=== PATIENT | female | born 1980 | race African-American/Black ===

== ENCOUNTER 2016-08-16 13:32 | Emergency (ER) | payer OTHER ==
--- NOTE | ~2016-08-16 | EKG ---
PATIENT: DANIEL BRIONES UNIT #: [id number] Ventricular Rate: 58 BPM Atrial Rate: 58 BPM P-R Interval: 134 ms QRS Duration: 80 ms Q-T Interval: 402 ms QTC Calculation(Bezet): 394 ms P [place]: 4 degrees Calculated R [place]: -18 degrees Calculated T [place]: 2 degrees Diagnosis Line: Sinus bradycardia Diagnosis Line: Minimal voltage criteria for LVH, may be normal Diagnosis Line: variant Diagnosis Line: Poor R wave progression questionable lead position Diagnosis Line: or body habitus Otherwise normal ECG Diagnosis Line: When compared with ECG of 16-AUG-2016 15:02, Diagnosis Line: (unconfirmed) Diagnosis Line: No significant change was found Diagnosis Line: Confirmed by JOHAN CANTU MD ([id number]) on 08/17/2016 Diagnosis Line: 10:06:24 AM INTERPRETING MD: PEPE COTTER
--- NOTE | ~2016-08-16 | MR122 ---
[facility] A Service of [facility] RADIOLOGY TEXT RESULTS PATIENT: DANIEL BRIONES LOCATION: [facility] : [birth year] UNIT #: [id number] AGE: [address]: Feliberto Hahn MD SEX: F ORDER DR: [id number] [facility] [address] [place], [place] [address] [id number] E MR#: [id number] Acc #: [id number] NAME: DANIEL BRIONES : 1980 SEX: F STUDY DATE/TIME: 08/16/2016 18:21 UNIT: [facility] ROOM: STUDY DESCRIPTION: MR MRA Head Wo Contrast Attending Physician: Shayne Hahn M.D. Ordering Physician: Moreno Kelly D.O. Primary Care Physician: [facility], [facility]. MRI CENTER REPORT This report is preliminary unless electronic signature is present. EXAM MR angiogram brain without contrast HISTORY Blurred vision today. Right jaw pain. TECHNIQUE MR angiogram of the brain was performed without contrast from the skull base through the [place]. FINDINGS The intracranial vertebral arteries and basilar artery are widely patent. The intracranial internal carotid arteries are widely patent bilaterally. The anterior cerebral, middle cerebral and posterior cerebral arteries are also widely patent. No major vessel occlusion. No aneurysm or vascular malformation. IMPRESSION Normal MR angiogram of the brain. Dictated by... Howard Meeks M.D. THIS IS AN ELECTRONICALLY VERIFIED REPORT Howard Meeks M.D. at 08/18/2016 5:14 PM DFL/pcl TD: 08/16/2016 22:28 JOB #: [id number] [facility] A Service [facility] RADIOLOGY TEXT RESULTS PATIENT: DANIEL BRIONES LOCATION: [facility] : [birth year] UNIT #: [id number] AGE: [address]: Feliberto Hahn MD SEX: F ORDER DR: MRI CENTER REPORT Page 1 of 1 COPY
--- NOTE | ~2016-08-16 | CR63 ---
[facility] A Service of [facility] RADIOLOGY TEXT RESULTS PATIENT: DANILE BRIONES LOCATION: [facility] : 80 UNIT #: [id number] AGE: [address]: Feliberto Hahn MD SEX: F ORDER DR: [id number] [facility] [address] [place], [place] [address] [id number] E MR#: [id number] Acc #: [id number] NAME: DANIEL BRIONES : 1980 SEX: F STUDY DATE/TIME: 08/16/2016 20:43 UNIT: [facility] ROOM: STUDY DESCRIPTION: CR Chest 2 View Attending Physician: Shayne Hahn M.D. Ordering Physician: Moreno Kelly D.O. Primary Care Physician: [facility] RE[facility] This report is preliminary unless electronic signature is present EXAM PA and lateral chest HISTORY Chest pain. Shortness of air today. FINDINGS The cardiac size is at the upper limits of normal, likely accentuated by low lung volumes. Pulmonary vascularity is normal. No infiltrates or effusions. IMPRESSION No acute findings Dictated by... Howard Meeks M.D. THIS IS AN ELECTRONICALLY VERIFIED REPORT Howard Meeks M.D. at 08/16/2016 11:18 PM YADIRA/edil TD: 08/16/2016 22:49 JOB #: [id number] MEDICAL IMAGING REPORT Page 1 of 1 COPY
--- NOTE | ~2016-08-16 | EKG ---
PATIENT: DANIEL BRIONES UNIT #: [id number] Ventricular Rate: 60 BPM Atrial Rate: 60 BPM P-R Interval: 126 ms QRS Duration: 82 ms Q-T Interval: 392 ms QTC Calculation(Bezet): 392 ms P [place]: 26 degrees Calculated R [place]: -17 degrees Calculated T [place]: -4 degrees Diagnosis Line: Normal sinus rhythm Diagnosis Line: Minimal voltage criteria for LVH, may be normal Diagnosis Line: variant Diagnosis Line: Otherwise normal ECG Diagnosis Line: When compared with ECG of 06-MAR-2011 23:59, Diagnosis Line: Vent. rate has decreased BY 65 BPM Diagnosis Line: Confirmed by JOHAN CANTU MD ([id number]) on 08/17/2016 Diagnosis Line: 10:04:51 AM INTERPRETING MD: PEPE COTTER
--- NOTE | ~2016-08-16 | MR134 ---
[facility] A Service of [facility] RADIOLOGY TEXT RESULTS PATIENT: DANIEL BRIONES LOCATION: [facility] : 80 UNIT #: [id number] AGE: [address]: Feliberto Hahn MD SEX: F ORDER DR: [id number] [facility] [address] [place] [address] [place], [place] [address] [id number] E MR#: [id number] Acc #: [id number] NAME: DANIEL BRIONES : 1980 SEX: F STUDY DATE/TIME: 08/16/2016 19:12 UNIT: [place] ROOM: STUDY DESCRIPTION: MR MRA Neck Wo Contrast Attending Physician: Shayne Hahn M.D. Ordering Physician: Moreno Kelly D.O. Primary Care Physician: [facility]. MRI CENTER REPORT This report is preliminary unless electronic signature is present. EXAM MR angiogram neck without contrast HISTORY Blurred vision today. Right jaw pain. FINDINGS MR angiogram of the neck was performed without contrast. The origins of the common carotid arteries and vertebral arteries are not well seen due to motion. The remainder of the common carotid arteries in the carotid bulbs and the cervical internal carotid arteries are widely patent with 0% stenosis by NASCET criteria. The remainder of the vertebral arteries are also widely patent bilaterally. IMPRESSION No evidence of cervical carotid artery stenosis by NASCET criteria. The visualized carotid arteries are widely patent bilaterally. The origins of the common carotid arteries and vertebral arteries are not well seen due to motion. Dictated by... Howard Meeks M.D. THIS IS AN ELECTRONICALLY VERIFIED REPORT Howard Meeks M.D. at 08/18/2016 5:14 PM DFBrayan/dharmesh TD: 08/16/2016 22:31 JOB #: [id number] MRI CENTER REPORT [facility] A Service [facility] RADIOLOGY TEXT RESULTS PATIENT: DANIEL BRIONES [facility] [id number] : [birth year] UNIT #: [id number] AGE: [address]: Feliberto Hahn MD SEX: F ORDER DR: Page 1 of 1 COPY
--- NOTE | ~2016-08-16 | MR18 ---
[facility] Service of [facility] RADIOLOGY TEXT RESULTS PATIENT: DANIEL BRIONES LOCATION: [facility] : 80 UNIT #: [id number] AGE: [address]: Feliberto Hahn MD SEX: F ORDER DR: [id number] [facility] [address] [place], [place] [address] [id number] E MR#: [id number] Acc #: [id number] NAME: DANIEL BRIONES : 1980 SEX: F STUDY DATE/TIME: 08/16/2016 18:29 UNIT: [facility] ROOM: STUDY DESCRIPTION: MR Brain Wo Contrast Attending Physician: Shayne Hahn M.D. Ordering Physician: Moreno Kelly D.O. Primary Care Physician: [facility], [facility]. MRI CENTER REPORT This report is preliminary unless electronic signature is present. EXAM MRI brain without contrast HISTORY Blurred vision today. Right jaw pain. FINDINGS MRI brain without contrast demonstrates no recent ischemia or infarct. No intracranial mass or edema. No midline shift, ventricular dilatation, focal atrophy, or extraaxial fluid collection. IMPRESSION Normal MRI brain. Dictated by... Howard Meeks M.D. THIS IS AN ELECTRONICALLY VERIFIED REPORT Howard Meeks M.D. at 08/18/2016 5:13 PM DFL/jared TD: 08/16/2016 22:27 JOB #: [id number] MRI CENTER REPORT Page 1 of 1 COPY
[~2016-08-16 13:32] MED LIST: AMOXIL500 M1 PO; BACTRIM DS TABL1 TA1 PO; LORTAB 5/500 TA1 TA1 PO; LORTAB 7.5-5001 TAB PO; ORUDIS75 M1 PO; PHENERGAN25 MG PO; UNKNOWN BP MED
[2016-08-16 15:24] LABS: BASOPHIL# 0.1 X10e3 (0-0.3); BASOPHIL% 0.8 % (0-2.5); EOSINOPHIL# 0.1 X10e3 (0-0.7); EOSINOPHIL% 1.2 % (0.0-7.0); HEMATOCRIT 35.8 % (35.0-45.0); HEMOGLOBIN 11.4 gm/dL (12.0-16.0); LYMPHOCYTE# 1.9 X10e3 (1.0-3.5); LYMPHOCYTE% 29.1 % (17.0-45.0); MEAN CELL VOLUME 76.9 FL (83-96); MEAN CORPUSCULAR HEMOGLOBIN 24.4 PG (28-34); MEAN CORPUSCULAR HGB CONC 31.8 g/dL (30-36); MEAN PLATELET VOLUME 7.7 FL (6.5-11.5); MONOCYTE# 0.6 X10e3 (0-1.0); MONOCYTE% 8.9 % (3.0-12.0); NEUTROPHIL# 3.9 X10e3 (1.5-7.1); PLATELET COUNT 348 X10e3 (140-420); RED BLOOD COUNT 4.65 X10e (3.90-5.30); RED CELL DISTRIBUTION WIDTH 19.2 % (11.0-15.5); WHITE BLOOD COUNT 6.6 X10e3 (4.0-10.5)
[2016-08-16 15:25] LABS: DIFF IND NO
[2016-08-16 15:31] LABS: PARTIAL THROMBOPLASTIN TIME 30.8 SECONDS (23.5-31.3)
[2016-08-16 15:41] LABS: ALBUMIN SERUM 3.8 g/dL (3.5-5.0); BILIRUBIN, DIRECT 0.1 mg/dL (0.0-0.2); BILIRUBIN,INDIRECT 0.3 mg/dL (0.0-0.9); BILIRUBIN,TOTAL 0.4 mg/dL (0.2-2.0); BUN/CREATININE RATIO 15.71; CALCIUM SERUM 9.2 mg/dL (8.4-10.2); CREATININE SERUM 0.7 mg/dL (0.6-1.4); GLOM FILT RATE Estimated 129.2 mL/min (>60); POTASSIUM 3.8 mmol/L (3.5-5.1); PROTEIN TOTAL SERUM 7.3 g/dL (6.0-8.3)
[2016-08-16 15:46] LABS: POC - CKMB 1.2 ng/mL (0.0-7.9); POC - TROPONIN <0.05 ng/mL (<=0.05)
[2016-08-16 22:31] LABS: POC - CKMB 1.1 ng/mL (0.0-7.9); POC - TROPONIN <0.05 ng/mL (<=0.05)
[2016-08-16 22:41] LABS: URINE SOURCE CLEAN CATCH
[2016-08-16 22:45] LABS: URINE APPEARANCE CLEAR; URINE BILIRUBIN NEG (NEG); URINE BLOOD NEG (NEG); URINE COLOR YELLOW; URINE GLUCOSE NEG (NEG); URINE KETONE NEG (NEG); URINE LEUKOCYTE ESTERASE NEG (NEG); URINE NITRATE NEG (NEG); URINE PROTEIN NEG (NEG); URINE SPECIFIC GRAVITY 1.014 (1.003-1.035); URINE UROBILINOGEN 0.2 MG/DL (NEG)
[2016-08-16 22:51] LABS: CULTURE INDICATED? NO
[2016-08-16 22:55] LABS: AMPHETAMINE NEG (NEG); BARBITURATES NEG (NEG); BENZODIAZEPINES NEG (NEG); COCAINE NEG (NEG); MARIJUANA NEG (NEG); OPIATES NEG (NEG); TRICYCLIC ANTIDEPRESSANTS NEG (NEG); U METHADONE NEG (NEG)
== END 2016-08-16 23:58 | disposition home or self-care (01) ==
LOC: CED 13:32 → CFTX 14:37 → CED 14:37
PROVIDERS: Emergency Medicine
DX: I10 Essential (primary) hypertension (principal); Z98.51 Tubal ligation status; R07.89 Other chest pain; R20.9 Unspecified disturbances of skin sensation; S05.02XA Injury of conjunctiva and corneal abrasion without foreign body, left eye, initial encounter; S05.01XA Injury of conjunctiva and corneal abrasion without foreign body, right eye, initial encounter; X58.XXXA Exposure to other specified factors, initial encounter; Y92.89 Other specified places as the place of occurrence of the external cause
CPT/HCPCS: 36415; 70544; 70547; 70551; 71020; 80048; 80076; 80307; 81003; 82553; 84484; 85025; 85610; 85730; 93005; 99284